=== PATIENT | female | born 2000 | race Caucasian/White ===

== ENCOUNTER 2023-09-26 20:10 | Emergency (ER) | payer SELFPAY ==
[~2023-09-26] VITALS: Ht 160 cm; Wt 75.0 kg
[2023-09-26 21:22] VITALS: O2SAT 98
[2023-09-27] MEDS: IBUPROFEN 600MG TABLET PO ONE (01:07)
[2023-09-27] MEDS: TETANUS, DIPHTHERIA, PERTUSSIS VAC/PF 0.5ML (>10YR OLD) IM ONE (01:08)
[2023-09-27] MEDS ORDERED: IBUP-2029 MT (01:45)
[2023-09-27] MEDS ORDERED: BO1 TP (01:45)
[2023-09-27] MEDS ORDERED: AMOX1TAB16 MT (01:45)
[2023-09-27 01:51] VITALS: BP 112/78; PULSE 68; RESP 17; TEMP 98.1
== END 2023-09-27 01:52 | disposition home or self-care (01) ==
LOC: ER 20:10
DX: S60.222A Contusion of left hand, initial encounter (principal); W54.0XXA Bitten by dog, initial encounter; Y93.89 Activity, other specified; Y92.89 Other specified places as the place of occurrence of the external cause; Y99.8 Other external cause status
CPT/HCPCS: 73130; 90471; 90715; 99283